=== PATIENT | male | born 2000 | race Caucasian/White ===

== ENCOUNTER 2024-10-03 08:41 | Emergency (ER) | payer OTHER, SELFPAY ==
[2024-10-03 08:54] VITALS: BP 154/105; PULSE 88; TEMP 37.2; O2SAT 98; BMI 31.6
[2024-10-03 09:03] VITALS: PULSE 84
[2024-10-03 09:05] VITALS: O2SAT 98
--- NOTE | 2024-10-03 09:12 | ED.GENADUL1 ---
HPI HPI - General Adult General Chief complaint: Shortness of Breath/Dyspnea Stated complaint: COLLAPSED LUNG SENT BY URGENT CARE Time Seen by Provider: 10/03/24 08:58 Source: patient Mode of arrival: walk-in Limitations: no limitations History of Present Illness HPI narrative: The patient is a 24-year-old male who was diagnosed with influenza A almost a week ago on Monday, presenting today to us after he was evaluated in urgent care apparently with a chest x-ray with a misunderstanding that this x-ray showing collapsed lung the patient was sent to the ER. Upon evaluation the patient denies any chest pain he is coming here only just because he told him to come over to be evaluated. The patient does not have any significant shortness of breath. His main concern with dizziness that is associated with the standing up sometime The patient denies any other complaints. He was just started on levofloxacin yesterday as well as a prednisone Related Data Home Medications ?Medication ?Instructions ?Recorded ?Confirmed No Known Home Medications 10/03/24 10/03/24 Allergies Allergy/AdvReac Type Severity Reaction Status Date / Time No Known Drug Allergies Allergy Verified 10/03/24 08:54 Opioid HPI Opioid Management Most Recent Opioid Data: No Data to Display Review of Systems ROS Status of ROS 10 or more systems reviewed and unremarkable except as noted in history and below Exam Narrative Exam Narrative: Nurses notes and vital signs reviewed and patient is not hypoxic. General: Well-appearing and in no apparent distress. Skin: Warm, dry, no pallor noted. No rash. Head: Normocephalic, atraumatic. Neck: Supple, non-tender. Eye: Pupils are equal, round and EOMI. No scleral icterus. Ears, Nose, Mouth, and Throat: TM are clear, no nasal mucosal hypertrophy. Oral mucosa is moist, no posterior oropharynx erythema, uvula is mid-line Cardiovascular: Regular Rate and Rhythm without murmur, gallop or rub. Respiratory: No accessory muscle use or respiratory distress. Lungs are clear to auscultation, no wheezing, rales or rhonchi ,there is a good air entry all over the lung field bilaterally Chest Wall: no tenderness Back: No midline thoracic or lumbar vertebral tenderness. No CVA tenderness Musculoskeletal: normal ROM, no calf or popliteal tenderness, no lower extremity edema/swelling GI: Abdomen is soft, non-distended. Normal bowel sounds. No masses appreciated. No tenderness to palpation. No rebound, guarding, or rigidity noted. Neurological: A&O x4. No cranial nerve dysfunction observed. No truncal ataxia. Moves all extremities. Sensation intact. Psychiatric: Cooperative and interactive. Normal mood and affect. Constitutional Vital Signs, click to edit/add: Last Vital Signs Temp 98.9 F 10/03/24 08:54 Pulse 88 10/03/24 08:54 Resp 20 10/03/24 08:54 BP 154/105 H 10/03/24 08:54 Pulse Ox 98 10/03/24 09:05 O2 Del Method Room Air 10/03/24 09:05 Course Vital Signs Vital signs: Vital Signs Temperature 98.9 F 10/03/24 08:54 Pulse Rate 88 10/03/24 08:54 Respiratory Rate 20 10/03/24 08:54 Blood Pressure 154/105 H 10/03/24 08:54 Pulse Oximetry 98 10/03/24 08:54 Oxygen Delivery Method Room Air 10/03/24 08:54 Temperature 98.9 F 10/03/24 08:54 Pulse Rate 88 10/03/24 08:54 Respiratory Rate 10/03/24 08:54 Blood Pressure 154/105 H 10/03/24 08:54 Pulse Oximetry 98 10/03/24 09:05 Oxygen Delivery Method Room Air 10/03/24 09:05 Medical Decision Making [facility] Narrative Medical decision making narrative: The patient have a breathing sounds all over the lung marc bilaterally, with some decrease in the bases No concern right now on auscultation for collapsed lung and the patient chest x-ray showed that he have atelectasis no pneumothorax The patient atelectasis could be secondary to pneumonia and the patient was already started levofloxacin for that Patient had an EKG showing sinus rhythm with a heart rate of the [address] elevation In review of systems the patient mentioned that he also was having diarrhea and explained to him that he need to increase his hydration and his dizziness could be secondary to that Patient to continue hydration and antibiotic he was instructed that in case of no improvement of symptoms after 48 hours of being on levofloxacin the patient will be coming back to the ER The patient is to follow up with primary care physician in next 2-3 days or to return to the emergency department should any of the signs or symptoms worsen or new symptoms develop. The patient agrees with the following Diagnosis and Treatment plan and the patient will be discharged home. Discharge Plan Discharge Chief Complaint: Shortness of Breath/Dyspnea Clinical Impression: Community acquired pneumonia Prescriptions / Home Meds: No Action No Known Home Medications Print Language: Egyptian Instructions: Community Acquired Pneumonia (DC) Referrals: Bubba Seo DO [Primary Care Provider] - 1 week
--- NOTE | 2024-10-03 14:30 | ECG_ITS ---
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
== END 2024-10-03 09:41 | disposition home or self-care (01) ==
PROVIDERS: Emergency Provider Emergency Medicine; PCP Family Medicine
DX: J18.9 Pneumonia, unspecified organism (principal)
CPT/HCPCS: 93005; 99281